=== PATIENT | female | born 1945 | race Caucasian/White ===

== ENCOUNTER 2018-02-17 11:30 | Emergency (ER) | payer OTHER, MEDICARE ==
[~2018-02-17] VITALS: Ht 165.1 cm; Wt 77.1 kg
[2018-02-17 14:24] LABS: ABSOLUTE BASOPHIL COUNT 0 /CUMM (0.0-0.2); ABSOLUTE EOSINOPHIL COUNT 0.1 /CUMM (0.0-0.7); ABSOLUTE GRANULOCYTE CT 7.9 /CUMM (1.4-6.5); ABSOLUTE LYMPH COUNT 1.4 /CUMM (1.2-3.4); ABSOLUTE MONOCYTE COUNT 0.4 /CUMM (0.10-0.60); BASOPHIL % 0.4 % (0.0-2.0); EOSINOPHIL % 1.3 % (0-5); GRANULOCYTE % 80.2 % (42.2-75.2); HEMATOCRIT 41.9 % (37-47); MEAN CORPUSCULAR HGB 29.9 PG (27.0-31.0); MEAN CORPUSCULAR HGB CONC 32.8 G/DL (33.0-37.0); MEAN PLATELET VOLUME 6.7 FL (7.4-10.4); PLATELET COUNT 355 /CUMM (130-400); RBC DISTRIBUTION WIDTH 14.2 % (11.5-14.5); RED BLOOD CELL CT 4.61 /CUMM (4.20-5.40); WHITE BLOOD CELL COUNT 9.8 /CUMM (4.8-10.8)
--- NOTE | 2018-02-17 15:43 | ED GENERAL ADULT ---
History of Present Illness General Chief Complaint: General Adult Stated Complaint: RECTAL BLEED INTERMITTENT PAIN Source: patient, old records Exam Limitations: no limitations Vital Signs & Intake/Output Vital Signs & Intake/Output Vital Signs Date Time Temp Pulse Resp B/P B/P Pulse O2 O2 Flow FiO2 Mean Ox Delivery Rate 02/17 1758 98.8 79 18 168/79 99 02/17 1547 98.1 74 20 185/88 100 Room Air 02/17 1152 98.5 77 20 135/81 97 Room Air Allergies Coded Allergies: No Known Allergies (02/17/18) Triage Note: PT STATES AT 0200 SHE GOT UP TO GO TO BR AND THEN HER ABDOMEN STARTED CRAMPING, AFTER A FEW HOURS SHE WENT INTO THE BR AND HAD BLOOD AND STOOL. STATES NOW IT IS JUST ALL BLOOD AND NO STOOL. STATES SHE HAS HAD 7-8 EPISODES TODAY. STILL CRAMPING Triage Nurses Notes Reviewed? yes Onset: Gradual Duration: day(s): (1) Timing: no prior history Injury Environment: home Severity: mild Severity Numbers: 5 Modifying Factors: Improves With: other (moving bowels). HPI: Patient is a 72-year-old female presenting to the emergency Department chief complaint of episode of lower abdominal cramping and 7-8 episodes of loose watery stool with blood in it that started this morning around 2 AM. Patient reports that she woke up with upper abdominal cramping that was [id number] in nature. Cramping seemed to resolve when she moved her bowels. She had a few episodes since onset. Denies lightheadedness or dizziness. No chest pain palpitations or shortness of breath. Last colonoscopy was done 7 years ago and she reports that she may have had a polyp but nothing significant. Denies any fevers or chills. No malaise. No nausea or vomiting. She's been drinking fluids without difficulty. Only had 2 crackers this morning. She reports that the blood that came from the diarrhea, but the toilet bowel and she had never had this before. No chest pain or palpitations. No shortness of breath. Denies any weakness or fatigue. (Israel GUTHRIE,Caren) Reconcile Medications Allopurinol 300 MG TABLET 1 TAB PO DAILY GOUT (Reported) Atorvastatin Calcium 10 MG TABLET 1 TAB PO DAILY CHOLESTEROL (Reported) Hyoscyamine (Levsin) 0.125 MG TABLET 1 TAB PO Q4 PRN ABDOMINAL SPASMS Levothyroxine Sodium (Synthroid) 125 MCG TABLET 1 TAB PO DAILY HYPOTHYROIDISM (Reported) Meclizine HCl 12.5 MG TABLET 1 TAB PO TIDPRN VERTIGO (Reported) Omeprazole 40 MG CAPSULE.DR 1 CAP PO DAILY GERD (Reported) Valsartan (Diovan) 40 MG TABLET 1 TAB PO DAILY UNK (Reported) (Gilda GONZÁLES,James Ennis) Past History Travel History Traveled to [place] past 21 day No Medical History Any Pertinent Medical History? see below for history Cardiovascular: hypertension, HIGH CHOLESTEROL Musculoskeletal: HX GOUT Endocrine: HYPOTHYROIDISM Influenza Vaccine: 12/01/17 Surgical History Surgical History: hysterectomy Psychosocial History What is your primary language Romansh Tobacco Use: Quit >30 days ago ETOH Use: occasional use Illicit Drug Use: denies illicit drug use Family History Hx Contributory? No (Caren Zavaleta) Review of Systems Review of Systems Constitutional: Reports: no symptoms. Comments Review of systems: See HPI, All other systems negative. Constitutional, no chills fever or weight loss HEENT: No visual changes no sore throat no congestion Cardiovascular: No chest pain ,palpitation , orthopnea or ankle swelling Skin, no jaundice no rashes Respiratory: No dyspnea cough sputum or hemoptysis GI: No nausea no vomiting : No dysuria No hematuria Muscle skeletal: no back pain, no neck pain, Neurologic: No numbness no confusion, no headache Psych: No stress anxiety or depression,. Heme/endocrine: No bruising no bleeding no polyuria or polydipsia Immunology: No splenectomy or history of AIDS (Caren Zavaleta) Physical Exam Physical Exam General Appearance: well developed/nourished, no apparent distress, alert, awake , comfortable Comments: Well-developed well-nourished person in no acute distress HEENT: Pupils equally round and reactive to light and accommodation. Nose is atraumatic. Pharynx normal. No swelling or edema. Moist oral mucosa. No signs of pallor noted to ocular conjunctiva bilaterally. Neck: Normal inspection, full range of motion Back: Nontender Cardiovascular: Regular rate and rhythms Respiratory: No respiratory distress.breath sounds clear to auscultation bilaterally Abdomen: Soft, nontender nondistended, no appreciable organomegaly. Normal bowel sounds. No ascites, no rebound or guarding. Rectal: No visible external hemorrhoids, no palpable internal hemorrhoids. No stool in the rectal vault, trace positive guaiac. Extremity: No edema Neuro: Alert oriented x3 Skin: No appreciable rash on exposed skin, skin is warm and dry. Psych: Mood and affect is normal, memory and judgment is normal. Core Measures ACS in differential dx? No CVA/TIA Diagnosis: No Sepsis Present: No Sepsis Focused Exam Completed? No (Israel GUTHRIE,Caren) Progress Differential Diagnoses I considered the following diagnoses in my evaluation of the patient: Ischemic colitis, diverticulosis, diverticulitis, nonspecific colitis Plan of Care: Orders Procedure Date/time Status Add-on Test (ER Only) 02/17 1816 Active CULTURE,URINE 02/17 1558 Active URINALYSIS 02/17 1558 Complete CULTURE,STOOL 02/17 1554 Active C.DIFFICILE 02/17 1554 Active Add-on Test (ER Only) 02/17 1543 Active PROTHROMBIN TIME 02/17 1412 Complete LACTIC ACID 02/17 1412 Complete COMPREHENSIVE METABOLIC PANEL 02/17 1346 Complete CBC WITHOUT DIFFERENTIAL 02/17 1346 Complete Laboratory Tests 02/17/18 1559: Urine Color YEL, Urine Clarity CLEAR, Urine pH 5.5, Ur Specific [place] >= 1.030 , Urine Protein NEG, Urine Ketones NEG, Urine Nitrite NEG, Urine Bilirubin NEG, Urine Urobilinogen 0.2, Ur Leukocyte Esterase NEG, Ur Microscopic SEDIMENT EXAMINED, Urine RBC 1-3, Urine WBC 1-3 H, Ur Epithelial Cells RARE, Urine Bacteria RARE H, Urine Mucus RARE, Urine Hemoglobin MOD H, Urine Glucose NEG 02/17/18 1412: Anion Gap 11, Estimated GFR > 60, BUN/Creatinine Ratio 18.6, Glucose 128 H, Lactic Acid 0.7, Calcium 9.5, Total Bilirubin 0.6, AST 23, ALT 34, Alkaline Phosphatase 94, Total Protein 7.1, Albumin 4.2, Globulin 2.9, Albumin/Globulin Ratio 1.4, PT 11.2, INR 1.03, CBC w Diff NO MAN DIFF REQ, RBC 4.61, MCV 91.0, MCH 29.9, MCHC 32.8 L, RDW 14.2, MPV 6.7 L, Gran % 80.2 H, Lymphocytes % 14.2 L, Monocytes % 3.9, Eosinophils % 1.3, Basophils % 0.4, Absolute Granulocytes 7.9 H, Absolute Lymphocytes 1.4, Absolute Monocytes 0.4, Absolute Eosinophils 0.1, Absolute Basophils 0 Microbiology 02/17 1559 URINE ROUT: Urine Culture - RECD 02/17 1554 STOOL: Clostridium difficile Toxin A & B - ORD 02/17 1554 STOOL: Stool Culture - ORD PT WELL APPEARING. NO EPISODES IN THE PAST 6 HOURS. WELL APPEARING. VITALS ARE STABLE. D/W DR TEMPLETON WHO SAW PT AND HE AGREES WITH PLAN. PT NON-TOXIC. WILL FOLLOW UP WITH GI IN 5-7 DAYS ALONG WITH PCP. LACTIC ACID NEGATIVE. H AND H STABLE. Diagnostic Imaging: Viewed by Me: CT Scan. Discussed w/RAD: CT Scan. Radiology Impression: PATIENT: NATAN WALL PRESENT AGE: 72 PATIENT ACCOUNT NO: [id number] : 45 LOCATION: [facility] ORDERING PHYSICIAN: Caren GUTHRIE SERVICE DATE: 02/17/18 EXAM TYPE: CAT - CT ABD & PELVIS W IV CONTRAST EXAMINATION: CT ABDOMEN AND PELVIS WITH CONTRAST CLINICAL INFORMATION: Diverticulitis. Ischemic colitis. Lower abdominal pain. Bright red blood per rectum COMPARISON: None TECHNIQUE: Multidetector volumetric imaging was performed of the abdomen and pelvis following IV administration of 95 mL of Optiray 320 intravenous contrast. Sagittal and coronal reformatted images were obtained on the technologist's workstation. DLP: 409.0 mGy-cm FINDINGS: LUNG BASES: The visualized lung bases are unremarkable. There is asymmetric elevation of the right diaphragm compared to left. LIVER, GALLBLADDER, AND BILIARY TREE: The liver is normal in size, shape, and attenuation. No focal hepatic lesion or biliary ductal dilatation is present. The gallbladder is unremarkable with no evidence of radiopaque gallstones, gallbladder wall thickening, or obvious pericholecystic inflammatory changes. PANCREAS: Unremarkable. SPLEEN: Unremarkable. Small splenule at the anterior inferior splenic margin. ADRENAL GLANDS: Unremarkable. KIDNEYS AND URETERS: The kidneys are normal in size, shape, and attenuation. No hydronephrosis, hydroureter, or calculi seen. No perinephric stranding. BLADDER: Unremarkable. GASTROINTESTINAL TRACT: There is diverticulosis of the colon. There are diverticula in the left colon from the splenic flexure through the descending colon to sigmoid colon. There is mild diffuse submucosal thickening from the splenic flexure through the sigmoid colon. There is no pericolonic edema however. This submucosal thickening could therefore be chronic. A mild colitis though is not excluded. There is no bowel obstruction. Moderate to large -volume of stool present with most of the stool in the right colon. Very little stool seen in the left colon and sigmoid. The appendix is normal. The small bowel loops are normal. ABDOMINAL WALL: No significant hernia is appreciated. LYMPH NODES: Normal. VASCULAR: There is vascular wall calcifications of aorta and iliac vessels without aneurysm. PELVIC VISCERA: Uterus is absent. There is no adnexal abnormality. OSSEOUS STRUCTURES: Multilevel degenerative spondylosis spine with disc height narrowing and endplate spurring and facet joint arthrosis. IMPRESSION: Diverticulosis of the left colon and sigmoid. No evidence of diverticulitis. There is mild thickening of the submucosa of the left colon from the splenic flexure through the sigmoid:. There is no pericolonic edema. The submucosal thickening could be therefore chronic though a mild colitis not excluded. There is no bowel obstruction. DICTATED BY: Sean Hamm MD DATE/TIME DICTATED:02/17/181714 CHECKER STOCKER:CHINO DATE/TIME TRANSCRIBED:1714 CONFIDENTIAL, DO NOT COPY WITHOUT APPROPRIATE AUTHORIZATION. < Electronically signed in Other Vendor System> SIGNED BY: Sean Hamm MD 1726 Initial ED EKG: none (Caren Zavaleta) Departure Departure Disposition: HOME OR SELF CARE Condition: Stable Clinical Impression Primary Impression: Diverticulosis Qualifiers: Diverticulosis site: unspecified location Diverticulosis bleeding: diverticulosis with bleeding Qualified Code: K57.91 - Diverticulosis of intestine, part unspecified, without perforation or abscess with bleeding Referrals: Catherine GONZÁLES,Paxton Sharma (PCP/Family) Marcus Alvarado MD Additional Instructions: Follow-up with gastroenterology call to make an appointment in the next to 4 days.. Increase fluids. Return if you have continued episodes of bleeding with bowel movements. Take Levsin to help with any abdominal discomfort. MAKE SURE TO HAVE A FRIEND CHECK IN ON YOU THROUGHOUT THE NIGHT. RETURN IF YOU HAVE CONTINUED SYMPTOMS. Departure Forms: Customer Survey General Discharge Information (Caren Zavaleta) Departure Prescriptions: Current Visit Scripts Hyoscyamine (Levsin) 1 TAB PO Q4 PRN ABDOMINAL SPASMS #40 TAB PA/LEAD CASHIER Co-Sign Statement Statement: ED Attending supervision documentation- [X] I saw and evaluated the patient. I have also reviewed all the pertinent lab results and diagnostic results. I agree with the findings and the plan of care as documented in the PA's/LEAD CASHIER's documentation. [] I have reviewed the ED Record and agree with the PA's/LEAD CASHIER's documentation. [] Additions or exceptions (if any) to the PAs/LEAD CASHIER's note and plan are summarized below: [] (Gilda GONZÁLES,James Ennis) Critical Care Note Critical Care Note Critical Care Time: non-applicable (Israel GUTHRIE,Caren)
--- NOTE | 2018-02-17 17:27 | CT SCAN REPORT ---
EXAMINATION: CT ABDOMEN AND PELVIS WITH CONTRAST CLINICAL INFORMATION: Diverticulitis. Ischemic colitis. Lower abdominal pain. Bright red blood per rectum COMPARISON: None TECHNIQUE: Multidetector volumetric imaging was performed of the abdomen and pelvis following IV administration of 95 mL of Optiray 320 intravenous contrast. Sagittal and coronal reformatted images were obtained on the technologist's workstation. DLP: 409.0 mGy-cm FINDINGS: LUNG BASES: The visualized lung bases are unremarkable. There is asymmetric elevation of the right diaphragm compared to left. LIVER, GALLBLADDER, AND BILIARY TREE: The liver is normal in size, shape, and attenuation. No focal hepatic lesion or biliary ductal dilatation is present. The gallbladder is unremarkable with no evidence of radiopaque gallstones, gallbladder wall thickening, or obvious pericholecystic inflammatory changes. PANCREAS: Unremarkable. SPLEEN: Unremarkable. Small splenule at the anterior inferior splenic margin. ADRENAL GLANDS: Unremarkable. KIDNEYS AND URETERS: The kidneys are normal in size, shape, and attenuation. No hydronephrosis, hydroureter, or calculi seen. No perinephric stranding. BLADDER: Unremarkable. GASTROINTESTINAL TRACT: There is diverticulosis of the colon. There are diverticula in the left colon from the splenic flexure through the descending colon to sigmoid colon. There is mild diffuse submucosal thickening from the splenic flexure through the sigmoid colon. There is no pericolonic edema however. This submucosal thickening could therefore be chronic. A mild colitis though is not excluded. There is no bowel obstruction. Moderate to large-volume of stool present with most of the stool in the right colon. Very little stool seen in the left colon and sigmoid. The appendix is normal. The small bowel loops are normal. ABDOMINAL WALL: No significant hernia is appreciated. LYMPH NODES: Normal. VASCULAR: There is vascular wall calcifications of aorta and iliac vessels without aneurysm. PELVIC VISCERA: Uterus is absent. There is no adnexal abnormality. OSSEOUS STRUCTURES: Multilevel degenerative spondylosis spine with disc height narrowing and endplate spurring and facet joint arthrosis. IMPRESSION: Diverticulosis of the left colon and sigmoid. No evidence of diverticulitis. There is mild thickening of the submucosa of the left colon from the splenic flexure through the sigmoid:. There is no pericolonic edema. The submucosal thickening could be therefore chronic though a mild colitis not excluded. There is no bowel obstruction.
[2018-02-17 17:58] VITALS: BP 168/79
[2018-02-17 18:38] LABS: PT 11.2 SEC (9.4-12.5)
[2018-02-17] MEDS ORDERED: ALLOPURINOL300 M1 PO (18:58)
[2018-02-17] MEDS ORDERED: SYNTHROID125 MCG PO (18:58)
[2018-02-17] MEDS ORDERED: MECLIZINE HCL12.5 M1 PO (18:58)
[2018-02-17] MEDS ORDERED: DIOVAN40 MG PO (18:59)
[2018-02-17] MEDS ORDERED: ATORVASTATIN CA10 M1 PO (18:59)
[2018-02-17] MEDS ORDERED: OMEPRAZOLE40 M1 PO (18:59)
[2018-02-17] MEDS ORDERED: LEVSIN0.125 M1 PO (19:04)
== END 2018-02-17 19:05 ==
LOC: ERH 11:30
PROVIDERS: Emergency Medicine
DX: K57.92 Diverticulitis of intestine, part unspecified, without perforation or abscess without bleeding (principal)
CPT/HCPCS: 74177; 81001; 87045; 87086